=== PATIENT | male | born 1990 | race Caucasian/White ===

== ENCOUNTER 2017-11-15 11:59 | Emergency (ER) | payer BC ==
[~2017-11-15 11:59] MED LIST: Acetaminophen/HYDROcodone 325-5 MG Tab ONE; Cephalexin 500 MG Cap ONE
--- NOTE | 2017-11-15 13:33 | EDM.PDOC ---
ED HPI GENERAL MEDICAL PROBLEM - General Chief Complaint: General Stated Complaint: HERNIA PAIN Time Seen by Provider: 11/15/17 12:15 Source of Information: Reports: Patient History Limitations: Reports: No Limitations - History of Present Illness INITIAL COMMENTS - FREE TEXT/NARRATIVE: According to patient he claims that he had some pain in the rectal region yesterday, but today morning he has been having severe pain in the rectal region which has been getting worse, cannot sit or stand, he feels a constant throbbing in his rectal region. Pt is from [place] and his primary care provider has been treating him with Beclomethasone cream for the lesion and was told he has a hernia in the rectal region. He claims he has been feeling feverish today. No abdominal pain or distension. No nausea or vomiting. He did have a bowel movement today and was painful to defecate. Onset: Today Onset Time: 06:00 Location: Reports: Other (rectal) Quality: Reports: Ache, Throbbing Severity: Severe Improves with: Reports: None Worsens with: Reports: None Associated Symptoms: Denies: Confusion, Chest Pain, Fever/Chills, Nausea/ Vomiting, Rash, Shortness of Breath, Weakness - Related Data Allergies Allergy/AdvReac Type Severity Reaction Status Date / Time ibuprofen [From Advil] Allergy Difficulty Verified 11/15/17 12:24 Breathing Home Meds: Home Meds Betamethasone/Propylene Glyc [Betamethasone Dp Aug 0.05% Oin] 1 applic TOP ASDIRECTED 11/15/17 [History] Triamcinolone Acetonide [Triamcinolone Acetonide 0.1% Crm] 1 applic TOP ASDIRECTED 11/15/17 [History] Past Medical History HEENT History: Reports: Impaired Vision Respiratory History: Reports: Asthma Gastrointestinal History: Reports: Other (See Below) Other Gastrointestinal History: rectal / anal hernia Neurological History: Reports: Seizure Other Neuro History: none since 2002 Dermatologic History: Reports: Other (See Below) Other Dermatologic History: lump removed medial neck Social & Family History - Family History Family Medical History: Noncontributory - Tobacco Use Smoking Status *Q: Never Smoker - Caffeine Use Caffeine Use: Reports: Energy Drinks, Soda - Alcohol Use Days Per Week of Alcohol Use: 1 Number of Drinks Per Day: 1 Total Drinks Per Week: 1 - Recreational Drug Use Recreational Drug Use: No ED ROS GENERAL - Review of Systems Review Of Systems: See Below Constitutional: Denies: Fever, Chills HEENT: Denies: Sinus Problem, Throat Pain, Throat Swelling Respiratory: Denies: Shortness of Breath, Wheezing, Cough, Sputum Cardiovascular: Denies: Chest Pain, Lightheadedness GI/Abdominal: Denies: Abdominal Pain, Constipation, Diarrhea, Hematochezia, Melena, Nausea, Vomiting : Denies: Urgency, Urinary Retention Musculoskeletal: Denies: Joint Pain, Joint Swelling Skin: Denies: Pruritis, Rash ED EXAM, GENERAL - Physical Exam Exam: See Below Exam Limited By: No Limitations General Appearance: Alert, WD/WN, No Apparent Distress Eye Exam: Bilateral Eye: EOMI, PERRL Ears: Normal External Exam, Normal Canal, Hearing Grossly Normal, Normal TMs Ear Exam: Bilateral Ear: Auricle Normal, Canal Normal, TM normal Nose: Normal Inspection, Normal Mucosa, No Blood Throat/Mouth: Normal Inspection, Normal Lips, Normal Teeth, Normal Gums, Normal Oropharynx, Normal Voice, No Airway Compromise Head: Atraumatic, Normocephalic Neck: Normal Inspection, Supple, Non-Tender, Full Range of Motion Respiratory/Chest: No Respiratory Distress, Lungs Clear, Normal Breath Sounds, No Accessory Muscle Use, Chest Non-Tender Cardiovascular: Normal Peripheral Pulses, Regular Rate, Rhythm, No Edema, No Gallop, No JVD, No Murmur, No Rub GI/Abdominal: Normal Bowel Sounds, Soft, Non-Tender, No Organomegaly, No Distention, No Abnormal Bruit, No Mass Rectal (Males) Exam: Normal Rectal Tone, Other (External exam of the perianal region: there is a 8cmm ovoid rasied blackish brown swelling over the % O clock positive of the anus. The swelling has some skin edema around it. Very tender to palpate and firm in consistency. Rectal exam is nromal, but painful due to swelling.) Back Exam: Normal Inspection, Full Range of Motion, NT Extremities: Normal Inspection, Normal Range of Motion, Non-Tender, Normal Capillary Refill, No Pedal Edema Course - Vital Signs Text/Narrative:: Pt has thrombosed external hemorrhoid at 5-O clock position. Very tender to palpation. I did reassure patient that only way to have any pain relief is to open and drain the thrombus in the hemorrhoids and make it bleed, which will take the pressure of the rectal vein. Pt did agree. Pt was placed in left lateral position and the area around the thrombosed hemorrhoid was cleaned. 1 % lido with epi was infiltrated around the hemorrhoid. After good anesthesia was obtained, an linear incision was made over the hemorrhoid and the clot removed. there was some purulent drainage too. Culture sent. the clots were completely removed until there was good bleeding from the area. Simple antibiotic pressure dressing done. Pt tolerated the procedure well. Pt's CBC shows white count of 11.5. His CMP appear normal. As there is open wound in the anal region, I have empirically covered him with oral keflex 500mg 4 times daily. Vicodin 5/325 every 4-6 hrs as needed for pain. Sitz bath twice daily. Apply simple antibiotic dressing. the wound will ooze a little but is normal. Followup in clinic next week for recheck. Last Recorded V/S: Last Vital Signs Temp 98.8 F 11/15/17 12:31 Pulse 82 11/15/17 12:32 Resp 16 11/15/17 12:32 BP 126/77 11/15/17 12:32 Pulse Ox 100 11/15/17 12:32 - Orders/Labs/Meds Labs: Laboratory Tests 11/15/17 11/15/17 Range/Units 12:29 12:29 WBC 11.6 H (4.0-11.0) K/uL RBC 6.15 (4.50-6.50) M/uL Hgb 12.7 L (13.0-18.0) g/dL Hct 38.7 L (40.0-54.0) % MCV 63 L (76-96) fL MCH 20.7 L (27.0-32.0) pg MCHC 32.8 (31.0-35.0) g/dL RDW 16.2 H (11.0-16.0) % Plt Count 293 (150-400) K/uL MPV 10.0 (6.0-10.0) fL Neut % (Auto) 79.3 H (45.0-70.0) % Lymph % (Auto) 11.8 L (20.0-40.0) % Daniels % (Auto) 7.1 (3.0-10.0) % Eos % (Auto) 1.6 (1.0-5.0) % Baso % (Auto) 0.2 (0.0-0.5) % Neut # (Auto) 9.16 H (2.00-7.50) K/uL Lymph # (Auto) 1.36 L (1.50-4.00) K/uL Daniels # (Auto) 0.82 H (0.20-0.80) K/uL Eos # (Auto) 0.19 (0.04-0.40) K/uL Baso # (Auto) 0.02 (0.02-0.10) K/uL Sodium 140 (136-145) mmol/L Potassium 3.8 (3.5-5.1) mmol/L Chloride 102 (98-107) mmol/L Carbon Dioxide 30.2 (21.0-32.0) mmol/L Anion Gap 11.6 (5.0-15.0) mmol/L BUN 17 (8-26) mg/dL Creatinine 1.25 (0.70-1.30) mg/dL Est Cr Clr Drug Dosing TNP Estimated GFR (MDRD) > 60 (>60) MLS/MIN BUN/Creatinine Ratio 13.6 (6-25) Glucose 97 (74-100) mg/dL Calcium 9.2 (8.5-10.1) mg/dL Total Bilirubin 0.7 (0.0-1.0) mg/dL AST 21 (15-37) U/L ALT 28 (12-78) U/L Alkaline Phosphatase 73 (46-116) U/L Total Protein 8.4 H (6.4-8.2) g/dL Albumin 4.3 (3.4-5.0) g/dL Globulin 4.1 (2.2-4.2) g/dL Albumin/Globulin Ratio 1.0 (0.8-2.0) Departure - Departure Time of Disposition: 14:00 Disposition: Home, Self-Care 01 Condition: Good Clinical Impression: Thrombosed external hemorrhoid - Discharge Information Referrals: PCP,None [Primary Care Provider] - Additional Instructions: I have empirically covered him with oral keflex 500mg 4 times daily. Vicodin 5/325 every 4-6 hrs as needed for pain. Sitz bath twice daily. Apply simple antibiotic dressing. the wound will ooze a little but is normal. Followup in clinic next week for recheck. - Problem List & Annotations (1) Thrombosed external hemorrhoid SNOMED Code(s): 52562866 Code(s): K64.5 - PERIANAL VENOUS THROMBOSIS Status: Acute Current Visit: Yes - Problem List Review Problem List Initiated/Reviewed/Updated: Yes - Assessment/Plan Assessment:: Thrombosed external hemorrhoid Plan: Pt has thrombosed external hemorrhoid at 5-O clock position. Very tender to palpation. I did reassure patient that only way to have any pain relief is to open and drain the thrombus in the hemorrhoids and make it bleed, which will take the pressure of the rectal vein. Pt did agree. Pt was placed in left lateral position and the area around the thrombosed hemorrhoid was cleaned. 1 % lido with epi was infiltrated around the hemorrhoid. After good anesthesia was obtained, an linear incision was made over the hemorrhoid and the clot removed. there was some purulent drainage too. Culture sent. the clots were completely removed until there was good bleeding from the area. Simple antibiotic pressure dressing done. Pt tolerated the procedure well. Pt's CBC shows white count of 11.5. His CMP appear normal. As there is open wound in the anal region, I have empirically covered him with oral keflex 500mg 4 times daily. Vicodin 5/325 every 4-6 hrs as needed for pain. Sitz bath twice daily. Apply simple antibiotic dressing. the wound will ooze a little but is normal. Followup in clinic next week for recheck.
== END 2017-11-15 13:50 | disposition home or self-care (01) ==
LOC: LB.ED 11:59
DX: K64.5 Perianal venous thrombosis (principal); Z88.6 Allergy status to analgesic agent
CPT/HCPCS: 36415; 46083; 80053; 85025; 87070; 87077; 87186; 87205; 99283; A9270